=== PATIENT | female | born 1985 | race Two or more races ===

== ENCOUNTER 2022-02-16 09:03 | Outpatient (REF) | payer OTHER, SELFPAY ==
--- NOTE | ~2022-02-16 | XR_ITS ---
EXAMINATION: XR CHEST CLINICAL INFORMATION: Bariatric service evaluation. E66.01. COMPARISON: None TECHNIQUE: 2 views of the chest were obtained. FINDINGS: The lungs are clear. The heart is normal in size. The vascularity is normal. The costophrenic sulci are clear. The hilar and mediastinal contours and visualized bony structures are unremarkable. XR/XR chest 2V IMPRESSION: Normal study.
--- NOTE | 2022-02-16 09:29 | ECG_ITS ---
Test Reason : cp Blood Pressure : / mmHG Vent. Rate : 079 BPM Atrial Rate : 079 BPM P-R Int : 148 ms QRS Dur : 100 ms QT Int : 378 ms P-R-T Axes : 070 047 062 degrees QTc Int : 433 ms Normal sinus rhythm Incomplete right bundle branch block Borderline ECG No previous ECGs available Referred By: Deidre Condon Electronically Signed By:NAEL ROSADO MD
[2022-02-16 10:21] LABS: Basophils Percent Auto 0.5 % (0-2); Eosinophils Absolute Auto 0.1 X10*3/uL (0.0-0.4); Eosinophils Percent Auto 1.6 % (0-4); Hematocrit 41.5 % (37.0-47.0); Hemoglobin 13.6 g/dl (12.0-16.0); Imm Gran Abs Auto 0.02 X10*3/uL (0.00-0.03); Imm Gran Pct Auto 0.3 % (0.0-0.4); Lymphocytes Absolute Auto 2.3 X10*3/uL (1.2-4.9); Lymphocytes Percent Auto 34.9 % (20-40); MANUAL DIFF FLAG SCAN; Mean Corpuscular HGB Conc 32.8 g/dl (31.0-35.0); Mean Corpuscular Hemoglobin 27.8 pg (27.0-33.0); Mean Corpuscular Volume 84.7 fL (80.0-98.0); Monocytes Absolute Auto 0.4 X10*3/uL (0.1-1.2); Monocytes Percent Auto 5.4 % (2-11); Neutrophils Absolute Auto 3.7 x10*3/uL (2.0-8.3); Neutrophils Percent Auto 57.3 % (45-73); PLT CLUMP 1; Red Cell Distribution Width 13.2 % (11.0-16.0); SCAN SMEAR FLAG 1
[2022-02-16 11:00] LABS: Estimated Average Glucose 114 mg/dL; Hemoglobin A1c % 5.6 %
[2022-02-16 11:14] LABS: Platelet Count 203 X10*3/uL (160-400); White Blood Count 6.5 X10*3/uL (4.8-10.8)
[2022-02-16 11:15] LABS: SLIDE REVIEW VERIFIED
[2022-02-16 12:51] LABS: Alanine Aminotransferase 17 U/L (0-31); Albumin Level 4.1 g/dL (3.5-5.0); Alkaline Phosphatase 57 U/L (39-117); Anion Gap 11 (12-20); Aspartate Amino Transferase 17 U/L (5-31); Bilirubin Total 0.3 mg/dL (0.0-1.0); Blood Urea Nitrogen 18 mg/dL (9-16); C Reactive Protein 0.26 mg/dL (< or = 0.50); Calcium 9.1 mg/dL (8.4-10.2); Carbon Dioxide 24 mmol/L (22-29); Chloride 106 mmol/L (96-108); Cholesterol 224 mg/dL; Estimated Glomerular Filt Rate > 60; Ferritin 17 ng/mL (10-122); Glucose Random 96 mg/dL (60-115); HDL Cholesterol 45 mg/dL; Insulin 7 uU/mL (2-29); Iron 46 mcg/dL (30-160); LDL Cholesterol Calculated 163 mg/dl; Percent Iron Saturation 14 % (15-50); Potassium 4.4 mmol/L (3.3-5.1); Sodium 137 mmol/L (135-145); TSH reflex Free T4 2.04 uIU/mL (0.32-4.0); Total Iron Binding Capacity 328 mcg/dL (228-428); Triglycerides 81 mg/dL; Unsaturated Iron Binding 282 ug/dL; Vitamin D 25-OH Total 15.1 ng/mL (>30)
[2022-02-16 13:02] LABS: Folate 6.1 ng/mL (> or = 4.0); Vitamin B12 303 pg/mL (200-900)
[2022-02-20 15:13] LABS: Calcium (PTHI) 9.1 mg/dL (8.6-10.2); PTHI 35 pg/mL (16-77)
[2022-02-21 18:19] LABS: Zinc 76 mcg/dL (60-130)
[2022-02-22 12:49] LABS: Vitamin A 35 mcg/dL (38-98)
[2022-02-24 11:49] LABS: Vitamin B1 9 nmol/L (8-30)
== END 2022-02-16 09:04 | disposition home or self-care (01) ==
LOC: HO.LAB 09:03
PROVIDERS: PCP Hospitalist; Visit Provider Physician Assistant
DX: Z01.818 Encounter for other preprocedural examination (principal); E66.01 Morbid (severe) obesity due to excess calories; K21.9 Gastro-esophageal reflux disease without esophagitis; I10 Essential (primary) hypertension; Z98.84 Bariatric surgery status
CPT/HCPCS: 36415; 71046; 80053; 80061; 82306; 82607; 82728; 82746; 83036; 83525; 83540; 83970; 84425; 84443; 84590; 84630; 85025; 86140; 93005

== ENCOUNTER → 2022-03-01 10:00 | Outpatient (BNVA) | payer OTHER, SELFPAY | PROVIDERS: PCP Hospitalist; Visit Provider Physician Assistant | DX: E66.01 Morbid (severe) obesity due to excess calories (principal) ==

== ENCOUNTER 2022-03-01 15:17 | Outpatient (REF) | payer OTHER, SELFPAY ==
[2022-03-03 09:04] LABS: H Pylori Breath Test Positive (Negative)
== END 2022-03-01 15:18 | disposition home or self-care (01) ==
LOC: HO.LNP 15:17
PROVIDERS: Visit Provider Physician Assistant
DX: Z01.818 Encounter for other preprocedural examination (principal); E66.01 Morbid (severe) obesity due to excess calories; I10 Essential (primary) hypertension; K21.9 Gastro-esophageal reflux disease without esophagitis; Z98.84 Bariatric surgery status
CPT/HCPCS: 83013

== ENCOUNTER → 2022-03-20 13:34 | Outpatient (BNVA) | payer OTHER, SELFPAY | PROVIDERS: Visit Provider Dietitian, Registered | DX: E66.9 Obesity, unspecified (principal) | CPT/HCPCS: 97802 ==

== ENCOUNTER 2022-03-21 13:36 | Outpatient (REF) | payer OTHER, SELFPAY ==
--- NOTE | ~2022-03-21 | CT_ITS ---
EXAMINATION: CT ABDOMEN AND PELVIS WITHOUT AND WITH CONTRAST CLINICAL INFORMATION: Severe obesity due to excess calories. Status post portal vein thrombosis. COMPARISON: None. TECHNIQUE: Multidetector volumetric imaging was performed of the abdomen and pelvis before and after the IV administration of 100 mL of Omnipaque 350 intravenous contrast. Sagittal and coronal reformatted images were obtained on the technologist's workstation. This CT examination was performed using dose optimization techniques as appropriate, variously including the following: *Automated exposure control *Adjustment of mA and/or kV according to patient size (this includes techniques or standardized protocols for targeted exams where dose is matched to indication/reason for exam; i.e. extremities or head) *Use of iterative reconstruction technique DLP: 2048 mGy-cm FINDINGS: LUNG BASES: The visualized lung bases are unremarkable. LIVER, GALLBLADDER, AND BILIARY TREE: The liver is enlarged and heterogeneous measuring over 21 cm in greatest length. Attenuation is normal. No focal hepatic lesion or biliary ductal dilatation is present. The gallbladder is unremarkable with no evidence of radiopaque gallstones, gallbladder wall thickening, or obvious pericholecystic inflammatory changes. PANCREAS: Unremarkable. SPLEEN: Unremarkable. ADRENAL GLANDS: Unremarkable. KIDNEYS AND URETERS: The kidneys are normal in size, shape, and attenuation. No hydronephrosis, hydroureter, or calculi seen. No perinephric stranding. BLADDER: Empty but unremarkable. GASTROINTESTINAL TRACT: The small and large bowel are unremarkable. The appendix is unremarkable. ABDOMINAL WALL: Prior abdominal wall surgery. No recurrent hernia. LYMPH NODES: No retroperitoneal lymphadenopathy. VASCULAR: There are a tangle of tortuous vessels present in the gerry hepatis consistent with cavernous transformation of the portal vein. The main portal vein is not visualized and intrahepatic portal radicles are poorly seen. The hepatic veins appear normal draining into the IVC. The splenic vein is not well seen. The abdominal aorta and iliofemoral vessels appear unremarkable. PELVIC VISCERA: The uterus and adnexa are unremarkable. No ascites is present. OSSEOUS STRUCTURES: Unremarkable. CT/CT abdomen pelvis wo/w IV con IMPRESSION: 1. Cavernous transformation of the portal vein. 2. Enlarged heterogeneous liver. Fleischner guidelines were followed.
[2022-03-21] MEDS: iohexoL 350 MG/ML 100 ML INFUS..BTL IV (14:20)
== END 2022-03-21 13:37 | disposition home or self-care (01) ==
LOC: HO.CT 13:36
PROVIDERS: PCP Hospitalist; Visit Provider Physician Assistant
DX: E66.01 Morbid (severe) obesity due to excess calories (principal); Z98.890 Other specified postprocedural states
CPT/HCPCS: 74178; Q9967

== ENCOUNTER → 2022-03-22 10:31 | Outpatient (BNVA) | payer OTHER, SELFPAY | PROVIDERS: PCP Hospitalist; Visit Provider Physician Assistant | DX: Z98.84 Bariatric surgery status (principal) ==

== ENCOUNTER 2022-03-27 09:35 | Outpatient (REF) | payer OTHER, SELFPAY | END 2022-03-27 09:36 | disposition home or self-care (01) | LOC: HO.US 09:35 | PROVIDERS: PCP Hospitalist; Visit Provider Physician Assistant | DX: Z13.89 Encounter for screening for other disorder (principal) ==

== ENCOUNTER 2022-04-12 09:34 | Outpatient (REF) | payer OTHER, SELFPAY ==
[2022-04-13 14:30] LABS: H Pylori Breath Test Negative (Negative)
== END 2022-04-12 09:35 | disposition home or self-care (01) ==
LOC: HO.LNP 09:34
PROVIDERS: PCP Hospitalist; Referring Provider Hospitalist; Visit Provider Physician Assistant
DX: Z01.818 Encounter for other preprocedural examination (principal); I81 Portal vein thrombosis; Z98.84 Bariatric surgery status
CPT/HCPCS: 83013

== ENCOUNTER 2022-04-18 11:04 | Outpatient (REF) | payer OTHER, SELFPAY ==
--- NOTE | ~2022-04-18 | US_ITS ---
EXAMINATION: US COMPLETE ABDOMEN WITH LIVER ELASTOGRAPHY CLINICAL INFORMATION: Morbid/severe obesity due to excess calories COMPARISON: None. TECHNIQUE: Real-time imaging of the abdominal viscera. Noninvasive ultrasound liver fibrosis assessment is performed using Eduardo Elast[employer] point quantification shear wave elastography (2D-SWE) with a C5-2 MHz transducer. Multiple elastography samples are obtained. FINDINGS: PANCREAS: Normal. The visualized pancreatic head and body are normal in appearance. The remainder of the pancreas is obscured from visualization by the overlying bowel gas. ABDOMINAL AORTA: The proximal, middle, and distal aortic segments are normal in caliber. INFERIOR VENA CAVA: Visualized portions are normal. LIVER: The liver demonstrates normal size, contour and echogenicity. No focal lesion or intrahepatic biliary duct dilatation. The right lobe measures 19.3 cm in length. The left lobe measures 12.3 cm in length. Portal flow is hepatopedal Shear wave liver elastography median stiffness is 1.25 m/s (reference: normal median stiffness is 1.3 m/s or less). IQR/median stiffness to assess sampling precision is 0.09 (reference: good quality data set is IQR/median stiffness of 0.15 or less). GALLBLADDER: Normal. The gallbladder is physiologically distended without evidence of stones, sludge, polyps, wall thickening or pericholecystic fluid. COMMON BILE DUCT: Normal in caliber measuring 0.7 cm in diameter. RIGHT KIDNEY: Normal. No hydronephrosis. No renal calculi or focal parenchymal lesions. The kidney measures 10.8 cm in maximum dimension. LEFT KIDNEY: Normal. No hydronephrosis. No renal calculi or focal parenchymal lesions. The kidney measures 13.2 cm in maximum dimension. SPLEEN: Normal. The spleen measures 9.5 cm in maximum dimension. FREE FLUID: None. US/US abdomen comp w elastography IMPRESSION: 1. Diffuse hepatic steatosis without focal lesion. Rest of the abdominal ultrasound is unremarkable. 2. Liver elastography: Median liver stiffness measures 1.25 m/s which corresponds to high probability normal. REFERENCE: Society of Radiologists in Ultrasound Liver Stiffness Thresholds (2019): LIVER STIFFNESS THRESHOLDS: *Liver Stiffness equal or less than 1.3 m/s: High probability of being normal. *Liver Stiffness less than 1.7 m/s: In the absence of other known clinical signs, rules out compensated advanced chronic liver disease. *Liver Stiffness 1.7-2.1 m/s: Suggestive of compensated advanced chronic liver disease but need further test for confirmation. *Liver Stiffness over 2.1 m/s: Rules in compensated advanced chronic liver disease. *Liver Stiffness over 2.4 m/s: Suggestive of clinically significant portal hypertension. QUALITY OF DATA SET: *IQR/Median value equal or less than 0.15 implies a quality data set. *IQR/Median value over 0.15 implies a poor quality data set. SIGNIFICANT CHANGE FROM PRIOR EXAM: Significant change if liver stiffness measurement is 10% or greater from prior exam. OTHER CONSIDERATIONS: The stage of liver fibrosis may be overestimated in the setting of acute hepatitis, liver inflammation, elevated liver function tests, hepatic vascular congestion, obstructive cholestasis, non-fasting state, and infiltrative diseases such as amyloidosis and lymphoma. In some patients with NAFLD, the liver stiffness thresholds for compensated advanced chronic liver disease may be lower. In causes other than viral hepatitis and NAFLD, liver stiffness thresholds are not well established.
--- NOTE | ~2022-04-18 | US_ITS ---
EXAMINATION: ABDOMINAL ULTRASOUND, DOPPLER CLINICAL INFORMATION: Evaluate for portal vein thrombus COMPARISON: Concurrently performed abdominal ultrasound. CT abdomen pelvis on 03/21/2022 TECHNIQUE: Abdominal duplex assist grayscale appearance and color Doppler flow. FINDINGS: Portal veins: Patent, with hepatopedal flow. Cavernous transformation. Splenic vein: Patent Hepatic artery: Antegrade flow in the hepatic arteries Hepatic veins: Patent and appropriate direction of flow. IVC: Patent US/US duplex arterial venous comp IMPRESSION: Cavernous transformation of the portal vein.
== END 2022-04-18 11:05 | disposition home or self-care (01) ==
LOC: HO.US 11:04
PROVIDERS: Visit Provider Physician Assistant
DX: Z01.818 Encounter for other preprocedural examination (principal); E66.01 Morbid (severe) obesity due to excess calories; I10 Essential (primary) hypertension; K21.9 Gastro-esophageal reflux disease without esophagitis; I81 Portal vein thrombosis; Z98.84 Bariatric surgery status
CPT/HCPCS: 76705; 76981; 93975

== ENCOUNTER 2022-04-23 09:33 | Outpatient (REF) | payer OTHER, SELFPAY ==
--- NOTE | ~2022-04-23 | FL_ITS ---
EXAMINATION: XR FLUOROSCOPY UPPER GI WITH AIR CLINICAL INFORMATION: Obesity COMPARISON: None TECHNIQUE: Upper GI was performed using thin and thick barium and effervescent granules FINDINGS: Esophageal motility is normal. No hernia or reflux. The stomach and duodenum are normal. No fold thickening, mass, ulcer or stricture. FLUOROSCOPY TIME: 0.4 minutes DOSE AREA PRODUCT: 6.3 palafox per centimeter squared. 18 saved fluoroscopic images. FL/FL upper GI w air IMPRESSION: Unremarkable examination.
== END 2022-04-23 09:34 | disposition home or self-care (01) ==
LOC: HO.XRAY 09:33
PROVIDERS: Visit Provider Physician Assistant
DX: Z01.818 Encounter for other preprocedural examination (principal); E66.01 Morbid (severe) obesity due to excess calories; I10 Essential (primary) hypertension; K21.9 Gastro-esophageal reflux disease without esophagitis; Z98.84 Bariatric surgery status
CPT/HCPCS: 74246